=== PATIENT | female | born 1985 | race African-American/Black ===

== ENCOUNTER 2019-12-10 11:06 | Emergency (ER) | payer SELFPAY ==
[~2019-12-10] VITALS: Ht 167.6 cm; Wt 78.9 kg
[2019-12-10 11:18] VITALS: BP 100/59
--- NOTE | 2019-12-10 11:35 | NUR ---
PT SIGNED WAIVER AND AGREED TO PROCEED WITH THE XRAY.
[2019-12-10] MEDS ORDERED: TRAMADOL HCL 50 MG TABLET PO ONE (12:30)
[2019-12-10] MEDS ORDERED: TRAMADOL HCL 50 MG TABLET ONE (12:32)
== END 2019-12-10 12:43 | disposition home or self-care (01) ==
LOC: ER 11:09
DX: S90.121A Contusion of right lesser toe(s) without damage to nail, initial encounter (principal); W22.8XXA Striking against or struck by other objects, initial encounter; Y93.89 Activity, other specified; Y92.89 Other specified places as the place of occurrence of the external cause; Y99.8 Other external cause status
CPT/HCPCS: 73630-TC

== ENCOUNTER 2022-06-01 12:17 | Emergency (ER) | payer SELFPAY ==
[~2022-06-01] VITALS: Ht 170.2 cm; Wt 79.4 kg
[2022-06-01 12:17] VITALS: BP 123/75
[2022-06-01] MEDS ORDERED: AMOX-430 PO (12:43)
[2022-06-01] MEDS ORDERED: KETO10TA2 PO (12:43)
[2022-06-01] MEDS ORDERED: DEXAMETHASONE SOD PHOSPHATE 10 MG/ML VIAL ONE (12:52)
[2022-06-01] MEDS ORDERED: DEXAMETHASONE SOD PHOSPHATE 10 MG/ML VIAL MC ONE (13:00)
== END 2022-06-01 13:00 | disposition home or self-care (01) ==
LOC: ER 12:20
DX: K14.6 Glossodynia (principal); J02.9 Acute pharyngitis, unspecified; Z79.899 Other long term (current) drug therapy
CPT/HCPCS: 99283; J1100

== ENCOUNTER 2023-09-13 11:05 | Emergency (ER) | payer MEDICAID ==
[~2023-09-13] VITALS: Ht 167.6 cm; Wt 82.1 kg
[~2023-09-13 11:05] MED LIST: AMOX-430 PO; KETO10TA2 PO
[2023-09-13] MEDS ORDERED: FLUORESCEIN SODIUM OPHTH 1 EA STRIP ONE (11:14)
[2023-09-13] MEDS ORDERED: TETRAcaine 5 ML BOTTLE ONE (11:15)
[2023-09-13] MEDS ORDERED: GENT5DRO4 LEFTEYE (11:21)
[2023-09-13] MEDS: FLUORESCEIN SODIUM OPHTH 1 EA STRIP OP ONE (11:26)
[2023-09-13 11:32] VITALS: BP 137/86; TEMP 98.1; O2SAT 100
== END 2023-09-15 11:23 | disposition home or self-care (01) ==
LOC: ER 11:08
DX: S05.02XA Injury of conjunctiva and corneal abrasion without foreign body, left eye, initial encounter (principal); X58.XXXA Exposure to other specified factors, initial encounter; Y93.89 Activity, other specified; Y92.89 Other specified places as the place of occurrence of the external cause; Y99.8 Other external cause status

== ENCOUNTER 2023-10-29 15:35 | Emergency (ER) | payer MEDICAID ==
[~2023-10-29] VITALS: Ht 172.7 cm; Wt 81.6 kg
[~2023-10-29 15:35] MED LIST changes: +GENT5DRO4 LEFTEYE
[2023-10-29 16:15] LABS: BASOPHILS % (AUTO) 0.8 % (0.0-2.0); EOSINOPHILS # (AUTO) 0.2 K/uL (0.0-0.7); EOSINOPHILS % (AUTO) 3.1 % (0.0-6.0); HEMATOCRIT 34 % (33-45); HEMOGLOBIN 11.1 g/dL (11.5-14.8); LYMPHOCYTES # (AUTO) 2.1 K/uL (0.8-4.8); LYMPHOCYTES % (AUTO) 32.9 % (20.0-44.0); MEAN CORPUSCULAR HEMOGLOBIN 25 PG (26.0-33.0); MEAN CORPUSCULAR HGB CONC 32 g/dl (31.0-36.0); MEAN CORPUSCULAR VOLUME 78 fL (82-100); MONOCYTES # (AUTO) 0.8 K/uL (0.1-1.30); MONOCYTES % (AUTO) 12.2 % (2.0-12.0); NEUTROPHILS # (AUTO) 3.3 K/uL (1.8-8.9); PLATELET COUNT (AUTO) 324 K/uL (150-450); RED BLOOD CELL COUNT(AUTO) 4.43 MIL/uL (4.0-5.2); RED CELL DISTRIBUTION WIDTH 15.4 % (11.5-15.0); WHITE BLOOD COUNT (AUTO) 6.4 K/uL (4.3-11.0)
[2023-10-29 16:22] LABS: CALCIUM, SERUM 8.9 mg/dL (8.5-10.1); CREATININE 0.7 mg/dL (0.6-1.3); POTASSIUM 3.8 mmol/L (3.5-5.1)
[2023-10-29 16:26] LABS: PARTIAL THROMBOPLASTIN TIME 25.9 SEC (24.3-34.3); PROTHROMBIN TIME 10.3 SECS (9.2-11.1)
[2023-10-29 16:28] LABS: ALBUMIN 3.4 g/dL (3.4-5.0); BILIRUBIN,DIRECT 0.1 mg/dL (0.0-0.2); BILIRUBIN,TOTAL 0.2 mg/dL (0.2-1.0)
[2023-10-29 16:45] LABS: PREGNANCY TEST URINE QUAL POSITIVE (NEGATIVE)
[2023-10-29] MEDS ORDERED: TRAN650T2 PO (17:42)
[2023-10-29] MEDS ORDERED: METR500T PO (17:42)
[2023-10-29] MEDS ORDERED: CEPH500C2 PO (17:42)
[2023-10-29 17:52] VITALS: BP 119/74; TEMP 98.6; O2SAT 100
== END 2023-10-29 17:53 | disposition home or self-care (01) ==
LOC: ER 15:39
DX: O03.1 Delayed or excessive hemorrhage following incomplete spontaneous abortion (principal)
CPT/HCPCS: 36415; 76856-TC; 80048-TC; 80076-TC; 84703-TC; 85025-TC; 85730-TC